=== PATIENT | female | born 1930 | race Caucasian/White ===

== ENCOUNTER 2018-05-16 23:58 | Inpatient (IN) | payer MEDICARE, OTHER ==
[~2018-05-16] VITALS: Ht 167.6 cm; Wt 52.4 kg
[2018-05-17] VITALS (7 sets, daily range): BP systolic 98–132; BP diastolic 49–68
[2018-05-17] MEDS ORDERED: ASPIR 8181 MG ORAL (00:09)
[2018-05-17] MEDS ORDERED: CLOTRIMAZOLE15 GM TOPIC (00:10)
[2018-05-17] MEDS ORDERED: ATENOLOL25 MG ORAL (00:10)
[2018-05-17] MEDS ORDERED: CRANBERRY450 M4 PO (00:10)
[2018-05-17] MEDS ORDERED: MELATONIN3 MG ORAL (00:11)
[2018-05-17] MEDS ORDERED: NORVASC10 MG ORAL (00:11)
[2018-05-17] MEDS ORDERED: MULTIVITAMINS1 EAC8 ORAL (00:11)
[2018-05-17] MEDS ORDERED: OYSTER SHELL C1 EA17 PO (00:12)
[2018-05-17] MEDS ORDERED: SYNTHROID150 MCG ORAL (00:13)
[2018-05-17] MEDS ORDERED: SENNA-DOCUSATE1 EACH PO (00:13)
[2018-05-17] MEDS ORDERED: SIMVASTATIN20 MG ORAL (00:13)
[2018-05-17] MEDS ORDERED: Acetaminophen 650 MG SUPP RECTAL ONE (00:15)
[2018-05-17 01:15] LABS: BASOPHILS % (AUTO) 0.5 % (0.0-2.0); HEMATOCRIT 31.6 % (37.0-47.0); HEMOGLOBIN 10.3 G/DL (12.0-16.0); LYMPHOCYTES % (AUTO) 11.7 % (20.0-45.0); MEAN CORPUSCULAR VOLUME 86 FL (80-99); MONOCYTES % (AUTO) 6.4 % (1.0-10.0); NEUTROPHILS % (AUTO) 80.4 % (45.0-75.0); PLATELET COUNT 148 K/UL (150-450); RED BLOOD COUNT 3.66 M/UL (4.20-5.40); RED CELL DISTRIBUTION WIDTH 13.6 % (11.6-14.8); WHITE BLOOD COUNT 10.1 K/UL (4.8-10.8)
[2018-05-17 01:25] LABS: ANION GAP 12 mmol/L (5-15); BLOOD UREA NITROGEN 31 mg/dL (7-18); CALCIUM 8.7 MG/DL (8.5-10.1); CARBON DIOXIDE 22 MMOL/L (21-32); CHLORIDE 109 MMOL/L (98-107); CREATININE 1.4 MG/DL (0.55-1.30); POTASSIUM 4.2 MMOL/L (3.5-5.1); SODIUM 143 MMOL/L (136-145)
[2018-05-17] MEDS ORDERED: Cefepime HCl 1 GM in D5W 55 ML IVPB ONE (01:30)
--- NOTE | 2018-05-17 01:38 | Emergency Room Report ---
History of Present Illness General Chief Complaint: Fever Source: Medical Record, EMS, PMD Present Illness HPI This is an 88-year-old female from a [facility]. She has multiple medical problem including sepsis, pneumonia, CVA and is bedbound. She is contracted and is DO NOT RESUSCITATE. She was [facility] in [facility] with chief complaint of fever cough. Onset for 1 day. She has no nausea or vomiting. Unable to get anything else for this patient because she is nonverbal. Allergies: Coded Allergies: DONEPEZIL (Verified Allergy, Mild, 05/17/18) PENICILLAMINE (Verified Allergy, Mild, 05/17/18) SULFA (SULFONAMIDE ANTIBIOTICS) (Verified Allergy, Mild, 05/17/18) Patient History Past Medical History: see triage record, old chart reviewed, HTN, CVA/TIA Past Surgical History: other Pertinent Family History: none Social History: Denies: smoking Now: No Immunizations: other Reviewed Nursing Documentation: PMH: Agreed; PSxH: Agreed Nursing Documentation-PMH Past Medical History: No History, Except For Hx Cardiac Problems: Yes - ARRHYTHMIAS, DNR Hx Hypertension: Yes Hx COPD: Yes Hx Diabetes: Yes Hx Gastrointestinal Problems: Yes - GERD History Of Psychiatric Problem: Yes - schyzophrenia Hx Neurological Problems: Yes - dementia,encephalopathy,ANXIETY,Altzheimers Hx Cerebrovascular Accident: Yes - right CVA Review of Systems Constitutional: Reports: fever, malaise, weakness Respiratory: Reports: cough All Other Systems: limited - Unable to give history secondary condition Physical Exam Vital Signs Date Time Temp Pulse Resp B/P (MAP) Pulse Ox O2 Delivery O2 Flow Rate FiO2 05/16/18 23:59 99.1 86 20 107/53 86 Room Air vitals with hypoxia Sp02 EP Interpretation: abnormal General Appearance: moderate distress, cachetic, Chronically Ill Head: normocephalic, atraumatic Eyes: bilateral eye PERRL, bilateral eye EOMI ENT: hearing grossly normal, dry mucus membranes Neck: full range of motion, supple, no meningismus Respiratory: chest non-tender, respiratory distress, decreased breath sounds, rhonchi Cardiovascular #1: regular rate, rhythm, no murmur Gastrointestinal: normal bowel sounds, non tender, no mass, no organomegaly, no bruit, non-distended Musculoskeletal: back normal, other - Contracted Skin: warm/dry Lymphatic: normal inspection Procedures Critical Care Time Critical Care Time Critical care is mandated in this patient who presented with sepsis from pneumonia. Patient require my urgent intervention to attenuate the risks of metabolic collapse which may lead to cardiovascular collapse and . Critical care time is 35 minutes excluding any reportable procedure. Critical care time included evaluation, multiple reevaluation, looking at old charts, interpreting laboratory and diagnostic data, discussing case with patient and family and consultants, and charting. Medical Decision Making Diagnostic Impression: Primary Impression: Sepsis Qualified Codes: A41.9 - Sepsis, unspecified organism Additional Impressions: Healthcare-associated pneumonia Anemia Qualified Codes: D64.9 - Anemia, unspecified YOAN (acute kidney injury) ER Course Patient presents with sepsis secondary to pneumonia. Wide spectrum antibiotics given. IV fluids given. Will admit for IV fluids and antibiotics. I discussed the case with Dr. Rico who will admit. Lab Results Impression labs unremarkable EKG Diagnostic Results Rate: normal Rhythm: NSR ST Segments: no acute changes Rhythm Strip Diag. Results EP Interpretation: yes Rate: 58 Rhythm: NSR, no PVC's, no ectopy Chest X-Ray Diagnostic Results Chest X-Ray Diagnostic Results : Chest X-Ray Ordered: Yes # of Views/Limited/Complete: 1 View Indication: Shortness of Breath EP Interpretation: Yes Interpretation: no effusion, no pneumothorax, other - LLL infiltrate Impression: Other - LLL infiltrate Electronically Signed by: Cesar Rendon MD Last Vital Signs Date Time Temp Pulse Resp B/P (MAP) Pulse Ox O2 Delivery O2 Flow Rate FiO2 05/16/18 23:59 99.1 86 20 107/53 86 Room Air Status: improved Disposition: ADMITTED INPATIENT Condition: Serious Referrals: Luciano Rico MD (PCP) Cesar Rendon MD May 17, 2018 01:38
[2018-05-17 01:39] LABS: ALANINE AMINOTRANSFERASE 15 U/L (12-78); ALBUMIN 2.7 G/DL (3.4-5.0); ALBUMIN/GLOBULIN RATIO 0.7 (1.0-2.7); ALKALINE PHOSPHATASE 69 U/L (46-116); ASPARTATE AMINO TRANSFERASE 24 U/L (15-37); BILIRUBIN,TOTAL 0.3 MG/DL (0.2-1.0); CKMB 5.7 NG/ML (0.0-3.6); CREATINE KINASE 347 U/L (26-308)
[2018-05-17 01:43] LABS: APPEARANCE,URINE CLOUDY; BILIRUBIN, URINE NEGATIVE (NEGATIVE); GLUCOSE, URINE (UA) NEGATIVE (NEGATIVE); KETONES,URINE NEGATIVE (NEGATIVE); LEUKOCYTE ESTERASE ,URINE 3+ (NEGATIVE); NITRITE,URINE POSITIVE (NEGATIVE); PH,URINE 5 (4.5-8.0); PROTEIN,URINE 3+ (NEGATIVE); UROBILINOGEN,URINE 1 MG/DL (0.0-1.0)
[2018-05-17 01:48] LABS: COLOR,URINE YELLOW
--- NOTE | 2018-05-17 03:11 | Diagnostic Imaging Report ---
EXAM: XR Chest, 1 View CLINICAL HISTORY: SOB TECHNIQUE: Frontal view of the chest. COMPARISON: No relevant prior studies available. FINDINGS: Lungs: Patient's chin obscures the lung apices. Prominent perihilar opacity and increased interstitial markings with slight reticulonodular appearance, left worse than right. Pleural space: Tiny left effusion difficult to exclude. No pneumothorax. Heart: Prominent cardiovascular silhouette likely borderline cardiomegaly accentuated by low lung volume and rotated position. Mediastinum: Unremarkable. Bones/joints: Degenerative change in the visualized left shoulder. Vasculature: Tortuous calcified thoracic aorta. Tubes, lines and devices: Overlying support apparatus obscure portion of the chest. IMPRESSION: Low lung volume, rotated position in overlying apparatus limit evaluation. Asymmetric edema versus pneumonia, left worse than right. Suspect tiny left effusion. Borderline cardiomegaly and tortuous thoracic aorta.
[2018-05-17] MEDS ORDERED: Milk of Magnesia 30ml Ud ORAL PRN (07:15)
[2018-05-17] MEDS: Multivitamin w/Minerals tab ORAL SCH (08:45)
[2018-05-17] MEDS: Aspirin EC 81mg tab ORAL SCH (08:45)
[2018-05-17] MEDS: Heparin 5000 units/ml inj SUBQ SCH ×2 (08:47→21:00)
[2018-05-17] MEDS: Atenolol 25mg tab ORAL SCH (08:59)
[2018-05-17] MEDS: Guaifenesin/DM 10ml syrup ORAL PRN ×2 (16:07→21:34)
--- NOTE | 2018-05-17 19:49 | Consultation ---
Consult Note Assessment/Plan [id number] uti sepsis ams dementia ri and dehydraiton hypoxemia cxr chf doubt pna Anastasiya Ortega DO May 17, 2018 19:49
--- NOTE | 2018-05-17 23:30 | History and Physical Report ---
DATE OF ADMISSION: 05/17/2018 CHIEF COMPLAINT/REASON FOR HOSPITALIZATION: The patient is an 88-year-old lady, resident [facility] admitted with fevers. 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 She lives in an [facility] and presented with a fever of 102 at the [facility]. She is unable to give a history. ALLERGIES: To penicillin, sulfa, and Aricept. PAST SURGICAL HISTORY: Right knee. MEDICATIONS: At the [facility] include amlodipine, aspirin, atenolol, calcium, Lotrimin cream, cranberry, levothyroxine, melatonin, multivitamins, senna, and simvastatin. SYSTEM REVIEW: Unable as above. PHYSICAL EXAMINATION: GENERAL: The patient is a thin elderly lady, in bed. She is singing to herself with repetitive verbalization of garbled speech. VITAL SIGNS: Temperature 97.3, pulse 61, respiratory rate 20, and blood pressure 132/65. HEAD, EYES, EARS, NOSE, AND THROAT EYES, EARS, NOSE, AND THROAT: Sclerae are nonicteric. Oral mucosa slightly dry. NECK: No adenopathy. LUNGS: I am unable to hear any rales or rhonchi above her verbalization. HEART: Regular rhythm. No murmur. ABDOMEN: Soft without organomegaly or masses. EXTREMITIES: Show muscle wasting. No edema, cyanosis, or clubbing. NEUROLOGIC: She is alert, aphasic, and mumbling to herself. Moves all extremities. No focal facial weakness. REVIEW OF PERTINENT DATABASE: Chest x-ray shows some possible infiltrate, low lung volumes, and possible pneumonia, left worse than the right. The urinalysis is abnormal with a 10 to 15 red cells and a 30 to 40 white cells per high-powered field. BUN 31 and creatinine 1.4, mildly elevated. White count 10.1 and hemoglobin 10.3. IMPRESSION: 1. Pneumonia. 2. Possible urinary tract infection. 3. Dehydration. 4. Prior cerebrovascular accidents with aphasia. 5. Tardive dyskinesia. 6. Schizophrenia. 7. Hypertension. 8. Chronic kidney disease, 3. 9. Chronic obstructive pulmonary disease. 10. Prior diagnosis a mild mitral stenosis. 11. Hypothyroidism, on replacement. 12. Dysphagia on pureed diet. 13. Gastroesophageal reflux disease. 14. Do Not Resuscitate directive. PLAN: 1. Hydration. 2. Empiric antibiotics. 3. Pulmonary care. Luciano Rico M.D. DR: GAMALIEL JOB#: [id number] CC:
[2018-05-18] VITALS: BP 103/54
--- NOTE | 2018-05-18 03:30 | Consultation ---
DATE OF CONSULTATION: 05/17/2018 PULMONARY CONSULT CONSULTING PHYSICIAN: Anastasiya Ortega M.D. REASON FOR CONSULTATION: Shortness of breath. HISTORY OF PRESENT ILLNESS: Elderly demented female unable to provide a history. History is obtained from electronic medical record. Apparently, she has multiple medical problems including pneumonia and CVA and is bed-bound and is possessing a DNR order. She was sent from the facility with a complaint of cough and fever for 24 hours. No nausea or diarrhea. She was seen in the emergency room, started on antibiotics and is currently NPO. PAST MEDICAL HISTORY: Includes CVA, COPD, gastroesophageal reflux disease, schizophrenia, dementia, diabetes, and hypertension. SOCIAL HISTORY: Unavailable. MEDICATIONS: Pre-hospital and present medications are reviewed, reconciled, documented in electronic medical record by dose, frequency, and route. ALLERGIES: Her drug allergies are also documented in electronic medical record as well. REVIEW OF SYSTEMS: Unavailable. PHYSICAL EXAMINATION: GENERAL: At the time of my exam, she is confused and agitated. She is currently in no acute distress. She is afebrile. VITAL SIGNS: Her pulse is 70, respiratory rate 20, and blood pressure 121/61. HEENT: She is normocephalic. Oropharynx is dry. Nasal mucosa is dry. NECK: Supple. LUNGS: Bilateral rhonchi. No wheezes present. HEART: Regular rhythm without murmur. ABDOMEN: Soft and nontender. Positive bowel sounds. EXTREMITIES: With no edema. She is contracted and cachectic. IMAGING DATA: Her chest x-ray shows asymmetric edema with possible effusion, pneumonia. LABORATORY DATA: White count 10, hemoglobin 10.3, and platelets are 148,000. Sodium 143, potassium 4.2, chloride 109, bicarbonate 23, BUN 31, creatinine 1.1, and glucose is 123. Her LFTs are normal. Her troponin is normal and her urinalysis is positive for leukocyte esterase. ASSESSMENT: 1. Urinary tract infection. 2. Altered mental status. 3. Schizophrenia. 4. Diabetes. 5. Hypertension. 6. No evidence of pneumonia. PLAN: 1. The patient is placed on IV antibiotics. 2. Home medicines were resumed. 3. DVT prophylaxis. 4. Aspiration precautions. 5. O2 to maintain saturations greater than 90%. 6. Follow up chest x-ray in one to two days. 7. Follow blood, urine, and sputum cultures, and we will continue to follow the patient for the remainder of her hospital stay. Anastasiya Ortega D.O. DR: FANY JOB#: [id number] CC:
[2018-05-18 04:00] VITALS: BP 137/51
[2018-05-18] MEDS: Guaifenesin/DM 10ml syrup ORAL PRN ×3 (06:08→20:11)
[2018-05-18 08:00] VITALS: BP 133/82
[2018-05-18] MEDS: Heparin 5000 units/ml inj SUBQ SCH ×2 (08:26→20:11)
[2018-05-18] MEDS: Multivitamin w/Minerals tab ORAL SCH (08:48)
[2018-05-18] MEDS: Aspirin EC 81mg tab ORAL SCH (08:48)
[2018-05-18] MEDS: Atenolol 25mg tab ORAL SCH (08:49)
[2018-05-18] MEDS: Vancomycin 1gm/D5W 275ml IVPB SCH ×2 (09:41)
[2018-05-18 12:00] VITALS: BP 136/76
--- NOTE | 2018-05-18 13:04 | General Progress Note ---
Assessment/Plan Problem List: (1) Dysphagia ICD Codes: R13.10 - Dysphagia, unspecified SNOMED: 77138044, 901270775 (2) CVA, old, aphasia ICD Codes: I69.320 - Aphasia following cerebral infarction SNOMED: 100250343 (3) Alzheimer disease ICD Codes: G30.9 - Alzheimer's disease, unspecified; F02.80 - Dementia in other diseases classified elsewhere without behavioral disturbance SNOMED: 59831013 (4) COPD (chronic obstructive pulmonary disease) ICD Codes: J44.9 - Chronic obstructive pulmonary disease, unspecified SNOMED: 80330911 (5) Pyelonephritis ICD Codes: N12 - Tubulo-interstitial nephritis, not specified as acute or chronic SNOMED: 97150961 (6) Sepsis ICD Codes: A41.9 - Sepsis, unspecified organism SNOMED: 56509116, 379991983 Qualifiers: Qualified Codes: A41.9 - Sepsis, unspecified organism Assessment/Plan G+ cocci in blood culture, G- rupesh uti, vanco added, cont pulm care, npo pend ST eval Subjective ROS Limited/Unobtainable: Yes Allergies: Coded Allergies: DONEPEZIL (Verified Allergy, Mild, 05/17/18) PENICILLAMINE (Verified Allergy, Mild, 05/17/18) SULFA (SULFONAMIDE ANTIBIOTICS) (Verified Allergy, Mild, 05/17/18) Objective Last 24 Hour Vital Signs Date Time Temp Pulse Resp B/P (MAP) Pulse Ox O2 Delivery O2 Flow Rate FiO2 05/18/18 12:00 79.5 66 20 136/76 (96) 96 05/18/18 09:00 Nasal Cannula 3.0 05/18/18 08:49 70 133/82 05/18/18 08:00 97.9 70 18 133/82 (99) 100 05/18/18 04:00 98.8 71 21 137/51 (79) 95 05/18/18 00:00 98.5 71 19 103/54 (70) 95 05/17/18 21:00 Nasal Cannula 3.0 05/17/18 20:00 98.3 66 19 110/52 (71) 94 05/17/18 16:00 97.8 70 20 121/61 (81) 94 Intake and Output 05/17/18 05/18/18 19:00 07:00 Intake Total 800 ml 525 ml Output Total 400 ml 850 ml Balance 400 ml -325 ml Intake IV Total 800 ml 525 ml Output Urine Total 400 ml 850 ml Height (Feet): 5 Height (Inches): 6.00 Weight (Pounds): 115 General Appearance: no apparent distress, confused EENT: normal ENT inspection Neck: normal alignment Cardiovascular: normal rate, regular rhythm Respiratory/Chest: rhonchi - bilaterally Abdomen: soft, no organomegaly Edema: no edema noted Arm (L), no edema noted Arm (R), no edema noted Leg (L), no edema noted Leg (R), no edema noted Pedal (L), no edema noted Pedal (R), no edema noted Generalized Neurologic: disoriented Luciano Rico MD May 18, 2018 13:03
[2018-05-18 16:00] VITALS: BP 137/87
[2018-05-18 20:00] VITALS: BP 128/84
--- NOTE | 2018-05-18 20:53 | Pulmonology Progress Note ---
Assessment/Plan Assessment/Plan ASSESSMENT: 1. Urinary tract infection. 2. Altered mental status. 3. Schizophrenia. 4. Diabetes. 5. Hypertension. 6. No evidence of pneumonia. PLAN: 1. The patient is placed on IV antibiotics. 2. Home medicines were resumed. 3. DVT prophylaxis. 4. Aspiration precautions. 5. O2 to maintain saturations greater than 90%. 6. Follow up chest x-ray in one to two days. 7. Follow blood, urine, and sputum cultures Subjective ROS Limited/Unobtainable: Yes Allergies: Coded Allergies: DONEPEZIL (Verified Allergy, Mild, 05/17/18) PENICILLAMINE (Verified Allergy, Mild, 05/17/18) SULFA (SULFONAMIDE ANTIBIOTICS) (Verified Allergy, Mild, 05/17/18) Subjective confused agiated no respriatory dsitress remains on o2 not getting oob Objective Last 24 Hour Vital Signs Date Time Temp Pulse Resp B/P (MAP) Pulse Ox O2 Delivery O2 Flow Rate FiO2 05/18/18 20:00 97.9 77 19 128/84 (99) 94 05/18/18 16:00 98.0 73 18 137/87 (104) 94 05/18/18 12:00 79.5 66 20 136/76 (96) 96 05/18/18 09:00 Nasal Cannula 3.0 05/18/18 08:49 70 133/82 05/18/18 08:00 97.9 70 18 133/82 (99) 100 05/18/18 04:00 98.8 71 21 137/51 (79) 95 05/18/18 00:00 98.5 71 19 103/54 (70) 95 05/17/18 21:00 Nasal Cannula 3.0 Intake and Output 05/17/18 05/18/18 18:59 06:59 Intake Total 800 ml 575 ml Output Total 400 ml 850 ml Balance 400 ml -275 ml Intake IV Total 800 ml 575 ml Output Urine Total 400 ml 850 ml General Appearance: cachetic Respiratory/Chest: lungs clear Cardiovascular: normal rate, regular rhythm Abdomen: normal bowel sounds, soft, non tender, non distended Extremities: no clubbing Neurologic/Psychiatric: disoriented Microbiology Date/Time Source Procedure Growth Status 05/17/18 01:30 Blood Blood Culture - Preliminary Resulted 05/17/18 01:15 Blood Blood Culture - Preliminary Resulted 05/17/18 01:15 Urine,Clean Catch Urine Culture - Preliminary Gram Negative Robert Resulted 05/17/18 03:10 Rectum Received Current Medications Medications (Trade) Dose Ordered Sig/Coleen Route PRN Reason Start Time Stop Time Status Last Admin Dose Admin Acetaminophen (Tylenol) 650 mg Q4H PRN ORAL Mild Pain/Temp > 100.5 05/17/18 07:15 06/16/18 07:14 Aspirin (Ecotrin) 81 mg DAILY ORAL 05/17/18 09:00 06/16/18 08:59 05/18/18 08:48 Atenolol (Tenormin) 25 mg DAILY ORAL 05/17/18 09:00 06/16/18 08:59 05/18/18 08:49 Guaifenesin/ Dextromethorphan (Robitussin DM Syrup) 5 ml Q4H PRN ORAL For Cough 05/17/18 15:15 06/16/18 15:14 05/18/18 20:11 Heparin Sodium (Porcine) (Heparin 5000 units/ml) 5,000 units EVERY 12 HOURS SUBQ 05/17/18 09:00 06/16/18 08:59 Levofloxacin 50 ml @ 50 mls/hr Q24H IVPB 05/18/18 02:00 05/25/18 01:59 05/18/18 02:20 Levothyroxine Sodium (Synthroid) 150 mcg DAILY ORAL 05/17/18 09:00 06/16/18 08:59 05/18/18 08:48 Magnesium Hydroxide (Mom) 30 ml DAILYPRN PRN ORAL Constipation 05/17/18 07:15 06/16/18 07:14 Metronidazole 100 ml @ 100 mls/hr Q8HR IVPB 05/17/18 08:00 05/24/18 07:59 05/18/18 13:16 Multivitamins Therapeutic (Therapeutic Multivitamin) 1 ea DAILY ORAL 05/17/18 09:00 06/16/18 08:59 05/18/18 08:48 Sodium Chloride 1,000 ml @ 50 mls/hr Q20H IV 05/17/18 04:15 06/16/18 04:14 05/18/18 20:30 Vancomycin HCl (Vanco rx to dose) 1 ea DAILY PRN MISC Per rx protocol 05/18/18 08:00 06/17/18 07:59 Vancomycin HCl 1 gm/Dextrose 275 ml @ 183.708 mls/hr Q24H IVPB 05/18/18 09:00 05/23/18 08:59 05/18/18 09:41 Anastasiya Ortega 24, 2019 20:53
[2018-05-19] VITALS (7 sets, daily range): BP systolic 100–157; BP diastolic 51–69
[2018-05-19] MEDS: Guaifenesin/DM 10ml syrup ORAL PRN ×3 (02:20→20:16)
[2018-05-19 06:54] LABS: BASOPHILS % (AUTO) 0.6 % (0.0-2.0); EOSINOPHILS % (AUTO) 2.9 % (0.0-3.0); HEMATOCRIT 28.7 % (37.0-47.0); HEMOGLOBIN 9.4 G/DL (12.0-16.0); LYMPHOCYTES % (AUTO) 10.2 % (20.0-45.0); MEAN CORPUSCULAR VOLUME 86 FL (80-99); MONOCYTES % (AUTO) 9.6 % (1.0-10.0); NEUTROPHILS % (AUTO) 76.8 % (45.0-75.0); PLATELET COUNT 221 K/UL (150-450); RED BLOOD COUNT 3.33 M/UL (4.20-5.40); RED CELL DISTRIBUTION WIDTH 13.3 % (11.6-14.8); WHITE BLOOD COUNT 5.3 K/UL (4.8-10.8)
[2018-05-19 07:28] LABS: ANION GAP 11 mmol/L (5-15); BLOOD UREA NITROGEN 15 mg/dL (7-18); CALCIUM 8.4 MG/DL (8.5-10.1); CARBON DIOXIDE 23 MMOL/L (21-32); CHLORIDE 106 MMOL/L (98-107); CREATININE 0.9 MG/DL (0.55-1.30); FERRITIN 220 NG/ML (8-388); POTASSIUM 3.6 MMOL/L (3.5-5.1); SODIUM 140 MMOL/L (136-145)
[2018-05-19] MEDS: Aspirin EC 81mg tab ORAL SCH (08:06)
[2018-05-19] MEDS: Multivitamin w/Minerals tab ORAL SCH (08:06)
[2018-05-19] MEDS: Vancomycin 1gm/D5W 275ml IVPB SCH ×2 (08:06)
[2018-05-19] MEDS: Atenolol 25mg tab ORAL SCH (08:08)
[2018-05-19] MEDS: Heparin 5000 units/ml inj SUBQ SCH ×2 (08:10→20:18)
[2018-05-19 08:15] LABS: % IRON SATURATION 13 % (15-50); IRON 20 ug/dL (50-175); TOTAL IRON BINDING CAPACITY 156 ug/dL (250-450)
--- NOTE | 2018-05-19 12:33 | Pulmonology Progress Note ---
Assessment/Plan Assessment/Plan 1. Urinary tract infection. 2. Altered mental status. 3. Schizophrenia. 4. Diabetes. 5. Hypertension. 6. No evidence of pneumonia. poorly responsive no distress few rhonchi cont HHN, abx Subjective ROS Limited/Unobtainable: Yes Allergies: Coded Allergies: DONEPEZIL (Verified Allergy, Mild, 05/17/18) PENICILLAMINE (Verified Allergy, Mild, 05/17/18) SULFA (SULFONAMIDE ANTIBIOTICS) (Verified Allergy, Mild, 05/17/18) Objective Last 24 Hour Vital Signs Date Time Temp Pulse Resp B/P (MAP) Pulse Ox O2 Delivery O2 Flow Rate FiO2 05/19/18 11:56 99.0 72 19 139/69 (92) 94 05/19/18 09:00 Nasal Cannula 3.0 05/19/18 08:08 71 124/58 05/19/18 08:00 99.1 71 20 124/58 (80) 93 05/19/18 04:00 98.6 68 18 100/51 (67) 94 05/19/18 00:00 98.4 75 18 112/56 (74) 93 05/18/18 21:00 Nasal Cannula 3.0 05/18/18 20:00 97.9 77 19 128/84 (99) 94 05/18/18 16:00 98.0 73 18 137/87 (104) 94 Intake and Output 05/18/18 05/19/18 19:00 07:00 Intake Total 475.000 ml 540 ml Balance 475.000 ml 540 ml Intake IV Total 475.000 ml 540 ml # Voids 3 3 General Appearance: no acute distress, cachetic HEENT: atraumatic Respiratory/Chest: rhonchi Cardiovascular: normal rate Microbiology Date/Time Source Procedure Growth Status 05/17/18 01:30 Blood Blood Culture - Preliminary Resulted 05/17/18 01:15 Blood Blood Culture - Preliminary Staphylococcus Species Resulted 05/17/18 03:10 Nasal Nares MRSA Culture - Final NO METHICILLIN RESISTANT STAPH AUREUS... Complete 05/17/18 01:15 Urine,Clean Catch Urine Culture - Final Escherichia Coli Complete 05/17/18 06:00 Rectum VRE Culture - Final NO VANCOMYCIN RESISTANT ENTEROCOCCUS ... Complete 05/17/18 03:10 Rectum - Final NO CARBAPENEM-RESISTANT ENTEROBACTERI... Complete Laboratory Tests 05/19/18 05:15: White Blood Count 5.3, Red Blood Count 3.33L, Hemoglobin 9.4L, Hematocrit 28.7L , Mean Corpuscular Volume 86, Mean Corpuscular Hemoglobin 28.3, Mean Corpuscular Hemoglobin Concent 32.7, Red Cell Distribution Width 13.3, Platelet Count 221, Mean Platelet Volume 6.7, Neutrophils (%) (Auto) 76.8H, Lymphocytes ( %) (Auto) 10.2L, Monocytes (%) (Auto) 9.6, Eosinophils (%) (Auto) 2.9, Basophils (%) (Auto) 0.6, Sodium Level 140, Potassium Level 3.6, Chloride Level 106, Carbon Dioxide Level 23, Anion Gap 11, Blood Urea Nitrogen 15, Creatinine 0.9, Estimat Glomerular Filtration Rate , Glucose Level 88, Calcium Level 8.4L, Iron Level 20L, Total Iron Binding Capacity 156L, Percent Iron Saturation 13L, Unsaturated Iron Binding 136, Ferritin 220, Vitamin B12 Level 227 Current Medications Medications (Trade) Dose Ordered Sig/Coleen Route PRN Reason Start Time Stop Time Status Last Admin Dose Admin Acetaminophen (Tylenol) 650 mg Q4H PRN ORAL Mild Pain/Temp > 100.5 05/17/18 07:15 06/16/18 07:14 Aspirin (Ecotrin) 81 mg DAILY ORAL 05/17/18 09:00 06/16/18 08:59 05/19/18 08:06 Atenolol (Tenormin) 25 mg DAILY ORAL 05/17/18 09:00 06/16/18 08:59 05/19/18 08:08 Guaifenesin/ Dextromethorphan (Robitussin DM Syrup) 5 ml Q4H PRN ORAL For Cough 05/17/18 15:15 06/16/18 15:14 05/19/18 08:07 Heparin Sodium (Porcine) (Heparin 5000 units/ml) 5,000 units EVERY 12 HOURS SUBQ 05/17/18 09:00 06/16/18 08:59 05/19/18 08:10 Levofloxacin 50 ml @ 50 mls/hr Q24H IVPB 05/18/18 02:00 05/25/18 01:59 05/19/18 02:20 Levothyroxine Sodium (Synthroid) 150 mcg DAILY ORAL 05/17/18 09:00 06/16/18 08:59 05/19/18 08:07 Magnesium Hydroxide (Mom) 30 ml DAILYPRN PRN ORAL Constipation 05/17/18 07:15 06/16/18 07:14 Metronidazole 100 ml @ 100 mls/hr Q8HR IVPB 05/17/18 08:00 05/24/18 07:59 05/19/18 06:20 Multivitamins Therapeutic (Therapeutic Multivitamin) 1 ea DAILY ORAL 05/17/18 09:00 06/16/18 08:59 05/19/18 08:06 Sodium Chloride 1,000 ml @ 50 mls/hr Q20H IV 05/17/18 04:15 06/16/18 04:14 05/18/18 20:30 Vancomycin HCl (Vanco rx to dose) 1 ea DAILY PRN MISC Per rx protocol 05/18/18 08:00 06/17/18 07:59 Vancomycin HCl 1 gm/Dextrose 275 ml @ 183.708 mls/hr Q24H IVPB 05/18/18 09:00 05/23/18 08:59 05/19/18 08:06 Kannan Morillo MD May 19, 2018 12:33
[2018-05-19] MEDS: Albuterol/Ipratropium 3ml neb HHN SCH ×2 (13:00→23:43)
--- NOTE | 2018-05-19 16:45 | General Progress Note ---
Assessment/Plan Problem List: (1) Dysphagia ICD Codes: R13.10 - Dysphagia, unspecified SNOMED: 99948328, 425889927 (2) CVA, old, aphasia ICD Codes: I69.320 - Aphasia following cerebral infarction SNOMED: 038763153 (3) Alzheimer disease ICD Codes: G30.9 - Alzheimer's disease, unspecified; F02.80 - Dementia in other diseases classified elsewhere without behavioral disturbance SNOMED: 34448355 (4) COPD (chronic obstructive pulmonary disease) ICD Codes: J44.9 - Chronic obstructive pulmonary disease, unspecified SNOMED: 25625170 (5) Pyelonephritis ICD Codes: N12 - Tubulo-interstitial nephritis, not specified as acute or chronic SNOMED: 56307218 (6) Sepsis ICD Codes: A41.9 - Sepsis, unspecified organism SNOMED: 78201641, 002300400 Qualifiers: Qualified Codes: A41.9 - Sepsis, unspecified organism Assessment/Plan G+ cocci in blood culture, staph , G- rupesh e coli uti, vanco added, cont pulm care, npo pend ST eval Subjective ROS Limited/Unobtainable: Yes Allergies: Coded Allergies: DONEPEZIL (Verified Allergy, Mild, 05/17/18) PENICILLAMINE (Verified Allergy, Mild, 05/17/18) SULFA (SULFONAMIDE ANTIBIOTICS) (Verified Allergy, Mild, 05/17/18) Objective Last 24 Hour Vital Signs Date Time Temp Pulse Resp B/P (MAP) Pulse Ox O2 Delivery O2 Flow Rate FiO2 05/19/18 16:00 98.9 60 18 111/65 (80) 95 05/19/18 14:00 60 16 94 Nasal Cannula 3.0 32 05/19/18 13:56 60 16 94 Nasal Cannula 3.0 32 05/19/18 11:56 99.0 72 19 139/69 (92) 94 05/19/18 09:00 Nasal Cannula 3.0 05/19/18 08:08 71 124/58 05/19/18 08:00 99.1 71 20 124/58 (80) 93 05/19/18 04:00 98.6 68 18 100/51 (67) 94 05/19/18 00:00 98.4 75 18 112/56 (74) 93 05/18/18 21:00 Nasal Cannula 3.0 05/18/18 20:00 97.9 77 19 128/84 (99) 94 Intake and Output 05/18/18 05/19/18 19:00 07:00 Intake Total 475.000 ml 540 ml Balance 475.000 ml 540 ml Intake IV Total 475.000 ml 540 ml # Voids 3 3 Laboratory Tests 05/19/18 05:15: White Blood Count 5.3, Red Blood Count 3.33L, Hemoglobin 9.4L, Hematocrit 28.7L , Mean Corpuscular Volume 86, Mean Corpuscular Hemoglobin 28.3, Mean Corpuscular Hemoglobin Concent 32.7, Red Cell Distribution Width 13.3, Platelet Count 221, Mean Platelet Volume 6.7, Neutrophils (%) (Auto) 76.8H, Lymphocytes ( %) (Auto) 10.2L, Monocytes (%) (Auto) 9.6, Eosinophils (%) (Auto) 2.9, Basophils (%) (Auto) 0.6, Sodium Level 140, Potassium Level 3.6, Chloride Level 106, Carbon Dioxide Level 23, Anion Gap 11, Blood Urea Nitrogen 15, Creatinine 0.9, Estimat Glomerular Filtration Rate , Glucose Level 88, Calcium Level 8.4L, Iron Level 20L, Total Iron Binding Capacity 156L, Percent Iron Saturation 13L, Unsaturated Iron Binding 136, Ferritin 220, Vitamin B12 Level 227 Height (Feet): 5 Height (Inches): 6.00 Weight (Pounds): 115 General Appearance: no apparent distress, alert, confused EENT: normal ENT inspection Neck: supple Cardiovascular: regular rhythm Respiratory/Chest: rhonchi - bilaterally Abdomen: non tender, soft Edema: no edema noted Arm (L), no edema noted Arm (R), no edema noted Leg (L), no edema noted Leg (R), no edema noted Pedal (L), no edema noted Pedal (R), no edema noted Generalized Neurologic: disoriented Luciano Rico MD May 19, 2018 16:45
[2018-05-19] MEDS: cefTRIAXone 1 GM in D5W 55 ML IVPB SCH (17:10)
[2018-05-20] VITALS: BP 121/59
[2018-05-20] MEDS: Albuterol/Ipratropium 3ml neb HHN SCH ×4 (00:36→19:33)
[2018-05-20 04:00] VITALS: BP 118/75
[2018-05-20 08:00] VITALS: BP 100/50
[2018-05-20] MEDS: Multivitamin w/Minerals tab ORAL SCH (08:46)
[2018-05-20] MEDS: Aspirin EC 81mg tab ORAL SCH (08:46)
[2018-05-20] MEDS: Heparin 5000 units/ml inj SUBQ SCH ×2 (08:48→20:52)
[2018-05-20] MEDS: Atenolol 25mg tab ORAL SCH (08:48)
[2018-05-20] MEDS: Vancomycin 1gm/D5W 275ml IVPB SCH ×2 (09:54)
--- NOTE | 2018-05-20 11:57 | General Progress Note ---
Assessment/Plan Problem List: (1) Dysphagia ICD Codes: R13.10 - Dysphagia, unspecified SNOMED: 27855082, 126093146 (2) CVA, old, aphasia ICD Codes: I69.320 - Aphasia following cerebral infarction SNOMED: 594332823 (3) Alzheimer disease ICD Codes: G30.9 - Alzheimer's disease, unspecified; F02.80 - Dementia in other diseases classified elsewhere without behavioral disturbance SNOMED: 26249817 (4) COPD (chronic obstructive pulmonary disease) ICD Codes: J44.9 - Chronic obstructive pulmonary disease, unspecified SNOMED: 79260214 (5) Pyelonephritis ICD Codes: N12 - Tubulo-interstitial nephritis, not specified as acute or chronic SNOMED: 56459450 (6) Sepsis ICD Codes: A41.9 - Sepsis, unspecified organism SNOMED: 04022083, 556952157 Qualifiers: Qualified Codes: A41.9 - Sepsis, unspecified organism Assessment/Plan G+ cocci in blood culture, staph , G- rupesh e coli uti, vanco added, change to levaquin per sens, cont pulm care, npo pend ST eval--now on puree Subjective ROS Limited/Unobtainable: Yes Allergies: Coded Allergies: DONEPEZIL (Verified Allergy, Mild, 05/17/18) PENICILLAMINE (Verified Allergy, Mild, 05/17/18) SULFA (SULFONAMIDE ANTIBIOTICS) (Verified Allergy, Mild, 05/17/18) Objective Last 24 Hour Vital Signs Date Time Temp Pulse Resp B/P (MAP) Pulse Ox O2 Delivery O2 Flow Rate FiO2 05/20/18 09:00 Nasal Cannula 3.0 05/20/18 08:48 63 100/50 05/20/18 08:05 63 16 94 Nasal Cannula 3.0 32 05/20/18 08:05 Nasal Cannula 3.0 32 05/20/18 08:05 63 16 94 Nasal Cannula 3.0 32 05/20/18 08:00 97.8 69 22 100/50 (67) 91 05/20/18 04:00 98.3 74 20 118/75 (89) 95 05/20/18 00:44 59 18 95 Nasal Cannula 3.0 32 05/20/18 00:36 61 18 92 Nasal Cannula 3.0 32 05/20/18 00:00 97.8 64 20 121/59 (79) 96 05/19/18 23:43 Nasal Cannula 3.0 32 05/19/18 23:43 Nasal Cannula 3.0 32 05/19/18 23:43 Nasal Cannula 3.0 32 05/19/18 23:43 97 Nasal Cannula 3.0 32 05/19/18 21:00 Nasal Cannula 3.0 05/19/18 20:00 97.9 58 20 117/56 (76) 95 05/19/18 18:14 05/19/18 16:00 98.9 60 18 111/65 (80) 95 05/19/18 14:00 60 16 94 Nasal Cannula 3.0 32 05/19/18 13:56 60 16 94 Nasal Cannula 3.0 32 Intake and Output 05/19/18 05/20/18 19:00 07:00 Intake Total 733.33 ml 650 ml Balance 733.33 ml 650 ml Intake Oral 70 ml IV Total 663.33 ml 650 ml # Voids 4 4 Height (Feet): 5 Height (Inches): 6.00 Weight (Pounds): 115 General Appearance: alert, confused EENT: normal ENT inspection Neck: normal alignment, supple Cardiovascular: regular rhythm Respiratory/Chest: lungs clear Abdomen: non tender, soft Edema: no edema noted Arm (L), no edema noted Arm (R), no edema noted Leg (L), no edema noted Leg (R), no edema noted Pedal (L), no edema noted Pedal (R), no edema noted Generalized Neurologic: disoriented Luciano Rico MD May 20, 2018 11:57
[2018-05-20 12:00] VITALS: BP 118/73
--- NOTE | 2018-05-20 13:02 | Pulmonology Progress Note ---
Assessment/Plan Assessment/Plan 1. Urinary tract infection. 2. Altered mental status. 3. Schizophrenia. 4. Diabetes. 5. Hypertension. 6. No evidence of pneumonia. poorly responsive no distress little intake may need PEG HHN, abx disc w RN Subjective ROS Limited/Unobtainable: Yes Allergies: Coded Allergies: DONEPEZIL (Verified Allergy, Mild, 05/17/18) PENICILLAMINE (Verified Allergy, Mild, 05/17/18) SULFA (SULFONAMIDE ANTIBIOTICS) (Verified Allergy, Mild, 05/17/18) Objective Last 24 Hour Vital Signs Date Time Temp Pulse Resp B/P (MAP) Pulse Ox O2 Delivery O2 Flow Rate FiO2 05/20/18 12:00 97.8 72 22 118/73 (88) 91 05/20/18 09:00 Nasal Cannula 3.0 05/20/18 08:48 63 100/50 05/20/18 08:05 63 16 94 Nasal Cannula 3.0 32 05/20/18 08:05 Nasal Cannula 3.0 32 05/20/18 08:05 63 16 94 Nasal Cannula 3.0 32 05/20/18 08:00 97.8 69 22 100/50 (67) 91 05/20/18 04:00 98.3 74 20 118/75 (89) 95 05/20/18 00:44 59 18 95 Nasal Cannula 3.0 32 05/20/18 00:36 61 18 92 Nasal Cannula 3.0 32 05/20/18 00:00 97.8 64 20 121/59 (79) 96 05/19/18 23:43 Nasal Cannula 3.0 32 05/19/18 23:43 Nasal Cannula 3.0 32 05/19/18 23:43 Nasal Cannula 3.0 32 05/19/18 23:43 97 Nasal Cannula 3.0 32 05/19/18 21:00 Nasal Cannula 3.0 05/19/18 20:00 97.9 58 20 117/56 (76) 95 05/19/18 18:14 05/19/18 16:00 98.9 60 18 111/65 (80) 95 05/19/18 14:00 60 16 94 Nasal Cannula 3.0 32 05/19/18 13:56 60 16 94 Nasal Cannula 3.0 32 Intake and Output 05/19/18 05/20/18 19:00 07:00 Intake Total 733.33 ml 650 ml Balance 733.33 ml 650 ml Intake Oral 70 ml IV Total 663.33 ml 650 ml # Voids 4 4 Objective poorly responsive General Appearance: no acute distress HEENT: atraumatic Respiratory/Chest: lungs clear Cardiovascular: normal rate Neurologic/Psychiatric: aphasia Current Medications Medications (Trade) Dose Ordered Sig/Coleen Route PRN Reason Start Time Stop Time Status Last Admin Dose Admin Acetaminophen (Tylenol) 650 mg Q4H PRN ORAL Mild Pain/Temp > 100.5 05/17/18 07:15 06/16/18 07:14 Albuterol/ Ipratropium (Albuterol/ Ipratropium) 3 ml Q6HRT HHN 05/20/18 01:00 05/25/18 00:59 05/20/18 08:05 Aspirin (Ecotrin) 81 mg DAILY ORAL 05/17/18 09:00 06/16/18 08:59 05/20/18 08:46 Atenolol (Tenormin) 25 mg DAILY ORAL 05/17/18 09:00 06/16/18 08:59 05/19/18 08:08 Ceftriaxone Sodium 1 gm/ Dextrose 55 ml @ 110 mls/hr Q24H IVPB 05/19/18 18:00 05/26/18 17:59 05/19/18 17:10 Guaifenesin/ Dextromethorphan (Robitussin DM Syrup) 5 ml Q4H PRN ORAL For Cough 05/17/18 15:15 06/16/18 15:14 05/19/18 20:16 Heparin Sodium (Porcine) (Heparin 5000 units/ml) 5,000 units EVERY 12 HOURS SUBQ 05/17/18 09:00 06/16/18 08:59 05/20/18 08:48 Levofloxacin (Levaquin) 250 mg DAILY ORAL 05/20/18 12:00 05/27/18 11:59 Levothyroxine Sodium (Synthroid) 150 mcg DAILY ORAL 05/17/18 09:00 06/16/18 08:59 05/20/18 08:46 Magnesium Hydroxide (Mom) 30 ml DAILYPRN PRN ORAL Constipation 05/17/18 07:15 06/16/18 07:14 Multivitamins Therapeutic (Therapeutic Multivitamin) 1 ea DAILY ORAL 3/23/19 09:00 06/16/18 08:59 05/20/18 08:46 Sodium Chloride 1,000 ml @ 50 mls/hr Q20H IV 05/17/18 04:15 06/16/18 04:14 05/19/18 16:17 Kannan Morillo MD May 20, 2018 13:02
[2018-05-20 16:00] VITALS: BP 111/57
[2018-05-20] MEDS: cefTRIAXone 1 GM in D5W 55 ML IVPB SCH (17:07)
--- NOTE | 2018-05-20 19:14 | Cardiology Report ---
APPROVED REPORT EKG Measurement Heart [id number] MD [id number] Normal sinus rhythm Normal ECG
[2018-05-20 20:00] VITALS: BP 121/81
[2018-05-21] VITALS: BP 127/87
[2018-05-21] MEDS: Albuterol/Ipratropium 3ml neb HHN SCH ×3 (00:53→12:35)
[2018-05-21 04:00] VITALS: BP 153/89
[2018-05-21 08:00] VITALS: BP 137/64
[2018-05-21] MEDS: Multivitamin w/Minerals tab ORAL SCH (08:10)
[2018-05-21] MEDS: Atenolol 25mg tab ORAL SCH (08:10)
[2018-05-21] MEDS: Aspirin EC 81mg tab ORAL SCH (08:10)
[2018-05-21] MEDS: Heparin 5000 units/ml inj SUBQ SCH (08:11)
[2018-05-21 12:00] VITALS: BP 132/72
[2018-05-21] MEDS ORDERED: LEVOFLOXACIN250 MG ORAL (15:29)
[2018-05-21 16:00] VITALS: BP_SYST 150; BP_SYST 160; BP_DIAS 96
--- NOTE | 2018-05-21 17:14 | Pulmonology Progress Note ---
Assessment/Plan Assessment/Plan 1. Urinary tract infection. 2. Altered mental status. 3. Schizophrenia. 4. Diabetes. 5. Hypertension. 6. No evidence of pneumonia. alert, mumbling no distress improved disc w RN agree w dc plan Subjective ROS Limited/Unobtainable: Yes Allergies: Coded Allergies: DONEPEZIL (Verified Allergy, Mild, 05/17/18) PENICILLAMINE (Verified Allergy, Mild, 05/17/18) SULFA (SULFONAMIDE ANTIBIOTICS) (Verified Allergy, Mild, 05/17/18) Objective Last 24 Hour Vital Signs Date Time Temp Pulse Resp B/P (MAP) Pulse Ox O2 Delivery O2 Flow Rate FiO2 05/21/18 16:00 98.0 65 18 150/96 (114) 96 05/21/18 12:45 57 21 96 Nasal Cannula 3.0 32 05/21/18 12:35 67 21 95 Nasal Cannula 3.0 32 05/21/18 12:00 97.7 61 22 132/72 (92) 98 05/21/18 09:00 Nasal Cannula 3.0 05/21/18 08:10 77 137/74 05/21/18 08:00 98.0 77 20 137/64 (88) 95 77 05/21/18 07:29 65 17 95 Nasal Cannula 3.0 32 05/21/18 07:18 93 Nasal Cannula 3.0 32 05/21/18 07:18 61 16 93 Nasal Cannula 3.0 32 05/21/18 07:18 Nasal Cannula 3.0 32 05/21/18 04:00 98.5 63 24 153/89 (110) 94 80 05/21/18 01:03 66 16 94 Nasal Cannula 3.0 32 05/21/18 00:54 62 16 94 Nasal Cannula 3.0 32 05/21/18 00:00 98.0 78 20 127/87 (100) 95 80 05/20/18 21:00 Nasal Cannula 3.0 05/20/18 20:00 98.6 80 24 121/81 (94) 96 80 05/20/18 19:43 71 16 95 Nasal Cannula 3.0 32 05/20/18 19:33 Nasal Cannula 3.0 32 05/20/18 19:33 68 16 94 Nasal Cannula 3.0 32 Intake and Output 05/20/18 05/21/18 19:00 07:00 Intake Total 1020.000 ml 500 ml Balance 1020.000 ml 500 ml Intake Oral 240 ml IV Total 780.000 ml 500 ml # Voids 4 Objective poorly responsive General Appearance: no acute distress, cachetic HEENT: atraumatic Respiratory/Chest: lungs clear Cardiovascular: normal rate Current Medications Medications (Trade) Dose Ordered Sig/Coleen Route PRN Reason Start Time Stop Time Status Last Admin Dose Admin Acetaminophen (Tylenol) 650 mg Q4H PRN ORAL Mild Pain/Temp > 100.5 05/17/18 07:15 06/16/18 07:14 Albuterol/ Ipratropium (Albuterol/ Ipratropium) 3 ml Q6HRT HHN 05/20/18 01:00 05/25/18 00:59 05/21/18 12:35 Aspirin (Ecotrin) 81 mg DAILY ORAL 05/17/18 09:00 06/16/18 08:59 05/21/18 08:10 Atenolol (Tenormin) 25 mg DAILY ORAL 05/17/18 09:00 06/16/18 08:59 05/21/18 08:10 Ceftriaxone Sodium 1 gm/ Dextrose 55 ml @ 110 mls/hr Q24H IVPB 05/19/18 18:00 05/26/18 17:59 05/20/18 17:07 Guaifenesin/ Dextromethorphan (Robitussin DM Syrup) 5 ml Q4H PRN ORAL For Cough 05/17/18 15:15 06/16/18 15:14 05/19/18 20:16 Heparin Sodium (Porcine) (Heparin 5000 units/ml) 5,000 units EVERY 12 HOURS SUBQ 05/17/18 09:00 06/16/18 08:59 05/21/18 08:11 Levofloxacin (Levaquin) 250 mg DAILY ORAL 05/20/18 12:00 05/27/18 11:59 05/21/18 08:10 Levothyroxine Sodium (Synthroid) 150 mcg DAILY ORAL 05/17/18 09:00 06/16/18 08:59 05/21/18 08:10 Magnesium Hydroxide (Mom) 30 ml DAILYPRN PRN ORAL Constipation 05/17/18 07:15 06/16/18 07:14 Multivitamins Therapeutic (Therapeutic Multivitamin) 1 ea DAILY ORAL 05/17/18 09:00 06/16/18 08:59 05/21/18 08:10 Sodium Chloride 1,000 ml @ 50 mls/hr Q20H IV 05/17/18 04:15 06/16/18 04:14 05/20/18 17:10 Kannan Morillo MD May 21, 2018 17:14
[2018-05-21] MEDS: cefTRIAXone 1 GM in D5W 55 ML IVPB SCH (18:27)
--- NOTE | 2018-05-22 11:00 | Discharge Summary ---
DATE OF ADMISSION: 05/17/2018 DATE OF DISCHARGE: 05/21/2018 PERTINENT HISTORY: The patient is an 88-year-old lady, presents with fever. There is a history of schizophrenia, dementia, CVAs with aphasia, CKD 3, COPD, and mild mitral stenosis. PERTINENT PHYSICAL FINDINGS: VITAL SIGNS: The patient is singing to herself, confused and disoriented. LUNGS: Clear. HEART: Regular rhythm. ABDOMEN: Soft. EXTREMITIES: Show muscle wasting. NEUROLOGIC: She is aphasic. COURSE IN THE HOSPITAL: The patient was started on broad-spectrum antibiotics and questionable infiltrates. She did have a UTI with E. coli and blood cultures grew Staphylococcus warneri. The patient's antibiotics were adjusted. She was stabilized. There was no further fever or chills. She was discharged to the ECF in stable condition. FINAL DIAGNOSES: 1. E. coli urinary tract infection. 2. Staphylococcus warneri bacteremia. 3. Neurogenic bladder. 4. History of CVA with aphasia. 5. COPD. DISCHARGE DISPOSITION: To the [facility] on a pureed diet. MEDICATIONS: Per the discharge medication list. FOLLOWUP: Follow up by Dr. Rico in the facility. Luciano Rico M.D. DR: TATI JOB#: [id number] CC:
== END 2018-05-21 20:47 | DRG 690 ==
LOC: EDBD 23:58 → EMR 05-17 00:20 → 4E 05-17 01:43 → EDBEDREQ 05-17 02:01
DX: N39.0 Urinary tract infection, site not specified (principal); R78.81 Bacteremia; B95.7 Other staphylococcus as the cause of diseases classified elsewhere; B96.20 Unspecified Escherichia coli [E. coli] as the cause of diseases classified elsewhere; I12.9 Hypertensive chronic kidney disease with stage 1 through stage 4 chronic kidney disease, or unspecified chronic kidney disease; N18.3 Chronic kidney disease, stage 3 (moderate); Z66 Do not resuscitate; F20.9 Schizophrenia, unspecified; E86.0 Dehydration; Z88.0 Allergy status to penicillin; Z88.2 Allergy status to sulfonamides; Z88.8 Allergy status to other drugs, medicaments and biological substances; F01.50 Vascular dementia, unspecified severity, without behavioral disturbance, psychotic disturbance, mood disturbance, and anxiety; I69.320 Aphasia following cerebral infarction; R13.10 Dysphagia, unspecified; K21.9 Gastro-esophageal reflux disease without esophagitis; E03.9 Hypothyroidism, unspecified; G24.01 Drug induced subacute dyskinesia; J44.9 Chronic obstructive pulmonary disease, unspecified; I34.2 Nonrheumatic mitral (valve) stenosis; Z79.82 Long term (current) use of aspirin
CPT/HCPCS: 36415; 71045; 80048; 80053; 81003; 82550; 82553; 82565; 82607; 82728; 83540; 83550; 83605; 84484; 85025; 87040; 87081; 87086; 87181; 93005; 94640; 94760; 96361; 96365; 96368; 99291; J7620